=== PATIENT | female | born 1995 | race Caucasian/White ===

== ENCOUNTER → 2024-09-06 | Outpatient (CLI) | payer BC ==
--- NOTE | 2024-09-06 18:31 | XR ---
EXAMINATION TYPE: XR abdomen 1V DATE OF EXAM: 09/06/2024 COMPARISON: NONE HISTORY: K59.09 OTHER CONSTIPATION TECHNIQUE: Single supine view of the abdomen is obtained FINDINGS: Small bowel demonstrates no evidence for dilatation or air fluid levels. Gas and fecal material is seen in non-distended colon. No convincing evidence for pneumoperitoneum. No unusual calcifications. The lung bases are clear. The osseous structures are intact. IMPRESSION: Overall nonobstructive bowel gas pattern. Moderate colonic stool burden. [facility], , 09/06/2024 6:29 PM
== END | disposition home or self-care (01) ==
LOC: RADXRMAIN 16:35
PROVIDERS: ATTEND Internal Medicine
DX: K59.09 Other constipation (principal)
CPT/HCPCS: 74018